=== PATIENT | male | born 1960 | race Two or more races ===

== ENCOUNTER 2019-07-08 18:01 | Emergency (ER) | payer SELFPAY ==
[~2019-07-08] VITALS: Ht 177.8 cm; Wt 65.8 kg
--- NOTE | 2019-07-08 19:00 | NUR ---
ASSUMED CARE FOR PT AT THIS TIME. PT BIBRA FROM STREET FOR ALCOHOL INTOXICATION. PT OPENS EYES TO PAINFUL STIMULI. VITAL SIGNS STABLE. RESPIRATIONS EVEN AND UNLABORED. NO ACUTE DISTRESS NOTED AT THIS TIME. PLACED ON MONITOR, WILL CONTINUE TO MONITOR
--- NOTE | 2019-07-09 01:18 | NUR ---
PT RESTING COMFORTABLY IN BED. STILL ON MONITOR. VITAL SIGNS STABLE. WILL CONTINUE TO MONITOR
--- NOTE | 2019-07-09 03:25 | NUR ---
PT RESTING COMFORTABLY IN BED. VITAL SIGNS STABLE. NO ACUTE DISTRESS NOTED AT THIS TIME. WILL CONTINUE TO MONITOR
--- NOTE | 2019-07-09 05:47 | NUR ---
ATTEMPTED TO AMBULATE PT, UNSTEADY GAIT. PT ASSISTED BACK TO BED
[2019-07-09 06:06] VITALS: BP 135/88
--- NOTE | 2019-07-09 06:06 | NUR ---
PT [id number]. ABLE TO AMBULATE WITH STEADY GAIT. NO ACUTE DISTRESS NOTED AT THIS TIME. Patient discharged to home in stable condition. Written and verbal after care instructions given. Patient verbalizes understanding of instruction.
== END 2019-07-09 06:07 | disposition home or self-care (01) ==
LOC: ER 18:05
DX: S00.31XA Abrasion of nose, initial encounter (principal); F10.129 Alcohol abuse with intoxication, unspecified; W19.XXXA Unspecified fall, initial encounter; Y93.89 Activity, other specified; Y92.89 Other specified places as the place of occurrence of the external cause; Y99.8 Other external cause status; Y90.9 Presence of alcohol in blood, level not specified
CPT/HCPCS: 70450-TC

== ENCOUNTER 2019-08-07 09:08 | Emergency (ER) | payer SELFPAY ==
[~2019-08-07] VITALS: Ht 165.1 cm; Wt 65.8 kg
[2019-08-07 09:15] VITALS: BP 145/89
--- NOTE | 2019-08-07 09:45 | NUR ---
Patient discharged to home in stable condition. Written and verbal after care instructions given. Patient verbalizes understanding of instruction.
== END 2019-08-07 09:45 | disposition home or self-care (01) ==
LOC: ER 09:08
DX: S01.81XD Laceration without foreign body of other part of head, subsequent encounter (principal); X58.XXXD Exposure to other specified factors, subsequent encounter